=== PATIENT | male | born 1985 | race Caucasian/White ===

== ENCOUNTER 2018-03-21 09:34 | Observation (INO) ==
[2018-03-21] MEDS ORDERED: Ondansetron 4 MG/2 ML VIAL IVP ONE (10:08)
[2018-03-21] MEDS ORDERED: 0.9 % Sodium Chloride 1,000 ML IVC ONE ×2 (10:08→10:21)
[2018-03-21] MEDS ORDERED: Isovue-370 500 ML INFUS..BTL IV ONE (10:20)
[2018-03-21 10:23] LABS: Basophils # 0.1 K/mcL (0.0-0.2); Basophils % 0.4 %; Eosinophils # 0.1 K/mcL (0.0-0.6); Eosinophils % 0.5 %; Hematocrit 46.8 % (37.5-50.1); Hemoglobin 15.9 g/dL (12.9-16.9); Immature Granulocytes % 0.3 % (0-4); Lymphocytes # 1.3 K/mcL (0.6-4.6); Lymphocytes % 10.5 %; Mean Corpuscular Hemoglobin 30.8 pg (28.0-33.3); Mean Corpuscular Volume 90.7 fL (83.0-100.0); Mean Platelet Volume 11.5 fL (9.4-12.4); Monocytes # 0.7 K/mcL (0.0-1.3); Monocytes % 6.2 %; Neutrophils # 9.8 K/mcL (1.6-8.9); Platelet Count 155 K/mcL (140-400); Red Blood Count 5.16 M/mcL (4.19-5.50); Segmented Neutrophils % 82.1 %
--- NOTE | 2018-03-21 10:25 | Emergency Department Note ---
Disposition Clinical Impression: Abdominal pain, acute, left lower quadrant, Diverticulitis Disposition: Still a Patient Referrals: NONE,PCP [Primary Care Provider] - General Adult HPI - General Chief complaint: ED Abdominal Pain Stated complaint: Abdominal pain Time Seen by Provider: 03/21/18 10:02 Source: patient Limitations: no limitations - History of Present Illness Pain Scale: 8 - Related Data Previous Rx's Medication Instructions Recorded Methocarbamol [Robaxin] 500 mg PO Q8HR PRN #30 tablet 01/25/18 Naproxen 500 mg PO BID 10 Days #20 tablet 01/25/18 Allergies Allergy/AdvReac Type Severity Reaction Status Date / Time No Known Allergies Allergy Verified 01/25/18 20:01 Past Medical History - Past Medical History Medical history: Reports: no medical history Surgical history: Reports: no surgical history Psychiatric history: Reports: no psych history - Social History Smoking Status: Current every day smoker Smokeless Tobacco Status: Yes Alcohol use: Reports: none Drug use: Reports: none Physical Exam - General Limitations: no limitations General appearance: alert, in no apparent distress Course Vital Signs Temperature 97.8 F 03/21/18 09:51 Pulse Rate 80 03/21/18 09:51 Respiratory Rate 16 03/21/18 09:51 Blood Pressure 121/78 03/21/18 09:51 O2 Sat by Pulse Oximetry 98 03/21/18 09:51 Temperature 97.8 F 03/21/18 09:51 Pulse Rate 80 03/21/18 09:51 Respiratory Rate 16 03/21/18 09:51 Blood Pressure 121/78 03/21/18 09:51 O2 Sat by Pulse Oximetry 98 03/21/18 09:51 Oxygen Delivery Oxygen Delivery Room Air Attestation Statement - Attestation Attestation: I examined this patient and my medical decision-making was reviewed with the Resident Physician. I agree with the documented findings, disposition and treatment plan as described except to the extent set forth below. 32-year-old male presents emergency of her left lower quadrant abdominal pain. Was seen a few days ago at an outlying facility and diagnosed with diverticulitis. He has been taking Cipro and Flagyl. Having worsening nausea and unable to tolerate the medication well. Increasing pain left lower quadrant. We will repeat a CT scan to make sure he does not have any macro perforation or any small abscess. We will start him on IV antibiotics as well.
[2018-03-21 10:44] LABS: Alanine Aminotransferase 46 Units/L (7-52); Albumin 4.4 g/dL (3.5-5.7); Albumin/Globulin Ratio 1.8 (1.1-2.2); Alkaline Phosphatase 83 Units/L (34-104); Aspartate Amino Transferase 22 Units/L (13-39); BUN/Creatinine Ratio 14 (6-26); Bilirubin,Direct 0.3 mg/dL (0.0-0.2); Bilirubin,Indirect 0.5 mg/dL (0.0-1.2); Bilirubin,Total 0.8 mg/dL (0.3-1.0); Blood Urea Nitrogen 12 mg/dL (6-20); Calcium 9.1 mg/dL (8.6-10.3); Carbon Dioxide 27 mEq/L (23-29); Chloride 104 mEq/L (98-107); Globulin 2.5 g/dL (2.4-3.5); Glucose 102 mg/dL (70-105); Lipase 18 Units/L (11-82); Osmolality,Calculated 282 (280-300); Potassium 3.8 mEq/L (3.5-5.1); Sodium 136 mEq/L (136-145); Total Protein 6.9 g/dL (6.4-8.9); eGFR For Non-African Americans > 60 (> 60)
[2018-03-21 10:48] LABS: Bilirubin,Urine Small (Negative); Blood,Urine Negative (Negative); Clarity,Urine Clear (Clear); Color,Urine Dark Yellow (Yellow); Glucose,Urine (UA) Normal (Normal); Ketones,Urine Trace mg/dL (Negative); Leukocyte Esterase,Urine Small (Negative); Nitrite,Urine Negative (Negative); PH,Urine 5.5 pH Units (5.0-8.0); Protein,Urine Negative (Neg-Trace); Specific Gravity,Urine 1.024 (1.010-1.025); Urobilinogen,Urine Normal (Normal)
[2018-03-21 10:51] LABS: Bacteria,Urine None Seen per hpf (None-Few); Hyaline Casts,Urine None Seen per lpf (None-Few); Squamous Epithelial Cell,Urine Few per lpf (None-Few); WBC,Urine 0-3 per hpf (0-3)
[2018-03-21] MEDS ORDERED: Piperacillin/Tazobactam 3.375 GM in 0.9 % Sodium Chloride Mini Bag 100 ML IVPB ONE (11:02)
--- NOTE | 2018-03-21 11:38 | Emergency Department Note ---
Disposition Clinical Impression: Acute diverticulitis Disposition: Admitted As Inpatient Condition: Fair Referrals: NONE,PCP [Primary Care Provider] - Forms: ED Satisfaction Letter, Work/School Release Time of Disposition: 12:03 Abdominal Pain HPI - General Chief Complaint: ED Abdominal Pain Stated Complaint: Abdominal pain Time Seen by Provider: 03/21/18 10:02 Source: patient Mode of arrival: ambulatory Limitations: no limitations Nursing Notes Reviewed: Yes Vital Signs Reviewed: Yes - History of Present Illness HPI Narrative: Patient is a 32-year-old male who presents to [facility] ED with a chief complaint of left lower quadrant abdominal pain. States his symptoms is worsened over the last 2 days. He was recently diagnosed with acute diverticulitis at [facility] in [place]. States at that time, they did a CT scan and then placed him on a course of oral antibiotics Cipro and Flagyl. States over the last 2 days, he has become more nauseated and his pain has been persistent. It was worse today at work so then he came in to get it rechecked. Has had subjective fevers and chills, no measured temperature. Denies any chest pain, difficulty breathing, problems with urination. Pt Subjective Complaint: abdominal pain Onset (ago): day(s) (3) Consistency: intermittent, Worsening Location: LLQ Pain Severity: moderate Pain Scale: 8 Quality: aching Radiation: none Migration to: no migration Improves with: nothing Worsens with: nothing Associated symptoms: Reports: nausea, fever (subjective), chills. Denies: vomiting, diarrhea, constipation, dysuria Treatments prior to arrival: other - Related Data Previous Rx's Medication Instructions Recorded Methocarbamol [Robaxin] 500 mg PO Q8HR PRN #30 tablet 01/25/18 Naproxen 500 mg PO BID 10 Days #20 tablet 01/25/18 Allergies Allergy/AdvReac Type Severity Reaction Status Date / Time No Known Allergies Allergy Verified 01/25/18 20:01 All systems ED: reviewed and negative except as stated. Abdominal Pain PMH - Past Medical History Medical history: Reports: no medical history Male Surgical History: Reports: orthopedic, other Psychiatric history: Reports: no psych history - Social History Smoking status: Current every day smoker Alcohol use: Reports: none Drug use: Reports: none Physical Exam - General Limitations: no limitations General appearance: alert, in no apparent distress - Head Head exam: atraumatic, normocephalic, normal inspection - Eye Eye exam: Present: EOMI - ENT ENT exam: normal exam, normal oropharynx, mucous membranes moist - Neck Neck exam: Present: normal inspection, full ROM, trachea midline - Chest Chest inspection: Present: normal inspection, symmetric chest wall rise - Respiratory Respiratory exam: Present: normal lung sounds bilaterally - Cardiovascular Cardiovascular exam: Present: regular rate, normal rhythm, normal heart sounds - Abdominal Exam Abdominal exam: Present: soft, tenderness Abdominal tenderness: Present: LLQ - Extremities Exam Extremities exam: Present: normal inspection, full ROM. Absent: tenderness, pedal edema - Neurological Exam Neurological exam: Present: alert, oriented X3 - Psychiatric Psychiatric exam: Present: normal affect, normal mood - Skin Skin exam: Present: warm, dry, intact, normal color Course Course Narrative: Patient seen and examined. Recent diverticulitis with worsening nausea and pain. We will get lab work as well as repeat CT of the abdomen and pelvis with IV contrast. We will give Zofran for nausea. We will go ahead and order a dose of IV Cipro and Flagyl. - Reevaluation(s) Reevaluation #1: Patient's lab work shows mild leukocytosis of 12. Labwork otherwise unremarkable. I received a call from the radiologist who states patient does have diverticulitis in the descending colon as well as a contained perforation. I discussed with the surgeon Dr. Duggan who will admit the patient. I went back to discuss with the patient. He is in agreement with the treatment plan. He would like something for pain at this time. We will give 0.5 mg Dilaudid. Time: 12:02 Vital Signs Temperature 97.8 F 03/21/18 09:51 Pulse Rate 80 03/21/18 09:51 Respiratory Rate 16 03/21/18 09:51 Blood Pressure 121/78 03/21/18 09:51 O2 Sat by Pulse Oximetry 98 03/21/18 09:51 Temperature 97.8 F 03/21/18 09:51 Pulse Rate 75 03/21/18 10:09 Respiratory Rate 14 03/21/18 10:09 Blood Pressure 119/75 03/21/18 10:09 O2 Sat by Pulse Oximetry 99 03/21/18 10:09 Oxygen Delivery Oxygen Delivery Room Air Abdominal Pain - Medical Records Medical records reviewed: Yes I reviewed the patient's medical records. - Lab Data Lab results reviewed: Yes I reviewed the patient's lab results. Result diagrams: 03/21/18 10:07 03/21/18 10:07 Lab Results 03/21/18 03/21/18 03/21/18 Range/Units 10:07 10:07 10:26 WBC 12.0 H (4.3-11.1) K/mcL RBC 5.16 (4.19-5.50) M/mcL Hgb 15.9 (12.9-16.9) g/dL Hct 46.8 (37.5-50.1) % MCV 90.7 (83.0-100.0) fL MCH 30.8 (28.0-33.3) pg MCHC 34.0 (31.6-35.5) g/dL RDW 12.0 (11.5-14.5) % Plt Count 155 (140-400) K/mcL MPV 11.5 (9.4-12.4) fL Immature Gran % 0.3 (0-4) % Seg Neutrophils % 82.1 % Lymphocytes % 10.5 % Monocytes % 6.2 % Eosinophils % 0.5 % Basophils % 0.4 % Neutrophils # 9.8 H (1.6-8.9) K/mcL Lymphocytes # 1.3 (0.6-4.6) K/mcL Monocytes # 0.7 (0.0-1.3) K/mcL Eosinophils # 0.1 (0.0-0.6) K/mcL Basophils # 0.1 (0.0-0.2) K/mcL Sodium 136 (136-145) mEq/L Potassium 3.8 (3.5-5.1) mEq/L Chloride 104 (98-107) mEq/L Carbon Dioxide 27 (23-29) mEq/L BUN 12 (6-20) mg/dL Creatinine 0.86 (0.70-1.30) mg/dL Est GFR ( Amer) > 60 (> 60) Est GFR (Non-Af Amer) > 60 (> 60) BUN/Creatinine Ratio 14 (6-26) Glucose 102 (70-105) mg/dL Calculated Osmolality 282 (280-300) Lactic Acid (0.5-2.2) mmol/L Calcium 9.1 (8.6-10.3) mg/dL Total Bilirubin 0.8 (0.3-1.0) mg/dL Direct Bilirubin 0.3 H (0.0-0.2) mg/dL Indirect Bilirubin 0.5 (0.0-1.2) mg/dL AST 22 (13-39) Units/L ALT 46 (7-52) Units/L Alkaline Phosphatase 83 (34-104) Units/L Serum Total Protein 6.9 (6.4-8.9) g/dL Albumin 4.4 (3.5-5.7) g/dL Globulin 2.5 (2.4-3.5) g/dL Albumin/Globulin Ratio 1.8 (1.1-2.2) Lipase 18 (11-82) Units/L Urine Color Dark Yellow (Yellow) Urine Clarity Clear (Clear) Urine pH 5.5 (5.0-8.0) pH Units Ur Specific [place] 1.024 (1.010-1.025) Urine Protein Negative (Neg-Trace) mg/dL Urine Glucose (UA) Normal (Normal) mg/dL Urine Ketones Trace H (Negative) mg/dL Urine Blood Negative (Negative) Urine Nitrite Negative (Negative) Urine Bilirubin Small H (Negative) Urine Urobilinogen Normal (Normal) mg/dL Ur Leukocyte Esterase Small H (Negative) Urine Microscopic RBC 5-15 H (0-3) per hpf Urine Microscopic WBC 0-3 (0-3) per hpf Ur Squamous Epith Cells Few (None-Few) per lpf Urine Bacteria None Seen (None-Few) per hpf Hyaline Casts None Seen (None-Few) per lpf Ur Culture Indicated? YES A (NO) 03/21/18 Range/Units 10:26 WBC (4.3-11.1) K/mcL RBC (4.19-5.50) M/mcL Hgb (12.9-16.9) g/dL Hct (37.5-50.1) % MCV (83.0-100.0) fL MCH (28.0-33.3) pg MCHC (31.6-35.5) g/dL RDW (11.5-14.5) % Plt Count (140-400) K/mcL MPV (9.4-12.4) fL Immature Gran % (0-4) % Seg Neutrophils % % Lymphocytes % % Monocytes % % Eosinophils % % Basophils % % Neutrophils # (1.6-8.9) K/mcL Lymphocytes # (0.6-4.6) K/mcL Monocytes # (0.0-1.3) K/mcL Eosinophils # (0.0-0.6) K/mcL Basophils # (0.0-0.2) K/mcL Sodium (136-145) mEq/L Potassium (3.5-5.1) mEq/L Chloride (98-107) mEq/L Carbon Dioxide (23-29) mEq/L BUN (6-20) mg/dL Creatinine (0.70-1.30) mg/dL Est GFR ( Amer) (> 60) Est GFR (Non-Af Amer) (> 60) BUN/Creatinine Ratio (6-26) Glucose (70-105) mg/dL Calculated Osmolality (280-300) Lactic Acid 0.9 (0.5-2.2) mmol/L Calcium (8.6-10.3) mg/dL Total Bilirubin (0.3-1.0) mg/dL Direct Bilirubin (0.0-0.2) mg/dL Indirect Bilirubin (0.0-1.2) mg/dL AST (13-39) Units/L ALT (7-52) Units/L Alkaline Phosphatase (34-104) Units/L Serum Total Protein (6.4-8.9) g/dL Albumin (3.5-5.7) g/dL Globulin (2.4-3.5) g/dL Albumin/Globulin Ratio (1.1-2.2) Lipase (11-82) Units/L Urine Color (Yellow) Urine Clarity (Clear) Urine pH (5.0-8.0) pH Units Ur Specific [place] (1.010-1.025) Urine Protein (Neg-Trace) mg/dL Urine Glucose (UA) (Normal) mg/dL Urine Ketones (Negative) mg/dL Urine Blood (Negative) Urine Nitrite (Negative) Urine Bilirubin (Negative) Urine Urobilinogen (Normal) mg/dL Ur Leukocyte Esterase (Negative) Urine Microscopic RBC (0-3) per hpf Urine Microscopic WBC (0-3) per hpf Ur Squamous Epith Cells (None-Few) per lpf Urine Bacteria (None-Few) per hpf Hyaline Casts (None-Few) per lpf Ur Culture Indicated? (NO) - Radiology Data Radiology results reviewed: Yes I reviewed the patient's radiology results. Abdomen/Pelvis CT 03/21/18 10:20 IMPRESSION: Acute diverticulitis of the descending colon, with suspected small focus of extraluminal air which may represent a contained perforation. No free air or well-defined abscess. Findings were called to Dr. Carlisle at 11:48 a.m., 03/21/2018 D/ / Flo Sullivan MD / Flo Sullivan MD Interpreting Provider: Flo Sullivan MD
[2018-03-21] MEDS ORDERED: MetroNIDAZOLE 500 MG/100 ML 500 MG/100 ML BAG IVPB ONE (11:44)
[2018-03-21] MEDS ORDERED: Ondansetron 4 MG/2 ML VIAL IVP PRN (11:57)
[2018-03-21] MEDS ORDERED: *HR* HYDROmorphone (PF) 1 MG/ML SYRINGE IVP ONE (11:57)
[2018-03-21] MEDS ORDERED: OXYCODONE Oral CONC 10 MG/0.5 ML ORAL.SYG SL PRN ×2 (11:57→21:18)
[2018-03-21] MEDS ORDERED: *HR* Promethazine 25 MG/ML VIAL IVP PRN (11:57)
--- NOTE | 2018-03-21 12:04 | General Surg History&Physical ---
<Keyla Sam - Last Filed: 03/21/18 14:00> Date of Encounter: 03/21/18 Time of Encounter: 12:04 Assessment and Plan (1) Acute diverticulitis Current Visit: Yes Status: Acute The assessment and plan as outlined above was discussed with the patient and/or family members who expressed understanding and agreement. All questions were answered. Per CT acute diverticulitis of the descending colon with acute microperforation. He is admitted for supportive care and discomfort management. He has failed outpatient antibiotic therapy. Plan: NPO IV fluids IV Zosyn repeat a.m. labs serial abdominal exams incentive spirometry nicotine patch PRN duonebs ambulate and halls TID out of bed to chair TID supportive care and discomfort management G.I. and DVT prophylaxis (2) Smoking history Current Visit: Yes Status: Acute The assessment and plan as outlined above was discussed with the patient and/or family members who expressed understanding and agreement. All questions were answered. see above (3) Currently works full-time Current Visit: Yes Status: Acute The assessment and plan as outlined above was discussed with the patient and/or family members who expressed understanding and agreement. All questions were answered. due his employer requirements, patient will need a work excuse to cover 5 days. he will not be permitted to return to work until atleast Monday03/28/2018. Informed patient that he will need to remain in hospital until at least Monday and therefore we could accommodate his need. History of Present Illness Chief complaint: left lower quadrant pain HPI: Mr. Bourne is a 32 year old male who reports a past medical history of smoking one half to half pack per day for greater than 10 years otherwise no other past medical history. He reports an isolated orthopedic surgery on his right hand. He states on Monday03/19/2018 he began having left lower quadrant dull achy pain. The pain as since progressed to severe, constant, sharp, 8 out of 10, and with alleviating factors of pain medication. He denies fever but endorses chills. He denies chest pain, shortness of breath, urinary symptoms, constipation, diarrhea, black, bloody, or tarry stool. He has never had a colonoscopy. He denies a family history of colon cancer. This is his 1st episode. He reports he went to the urgent care on Monday, was diagnosed with diverticulitis, and was started on Cipro and Flagyl. As noted above, his symptoms progressed while on Cipro Flagyl. CT of the abdomen and pelvis with IV and no oral contrast noted acute diverticulitis of the descending colon with a suspected small focus of extra luminal air which might represent a microperforation. He is admitted to the surgical service for management of diverticulitis. Past Med Surg Social Fam HX - Past Medical History Source: patient Medical history: no medical history Psychiatric history: no psych history - Past Surgical History Surgical History: no surgical history - Social History Smoking Status: Current every day smoker Packs per day: 1/2 pack per day for greater than 10 years Smokeless Tobacco Status: Yes Alcohol use: none Drug use: none Occupational status: employed Current living situation: Home - Independent Activity Level: Independent ambulation Recent Out of Country Travel Within the Last 8 Weeks: No Exposure or Possible Exposure to Illness During Travel: No Medications and Allergies No Known Home Drugs 03/21/18 [History] 3 Allergy/AdvReac Type Severity Reaction Status Date / Time No Known Allergies Allergy Verified 01/25/18 20:01 Review of Systems All systems PM: reviewed and no additional remarkable complaints except as stated All systems PM: The remainder of the systems were reviewed and are negative General Surgery Exam Initial Vital Signs Temp Pulse Resp BP Pulse Ox 97.8 F 80 16 121/78 98 03/21/18 09:51 03/21/18 09:51 03/21/18 09:51 03/21/18 09:51 03/21/18 09:51 VITAL SIGNS: Reviewed. See [facility] GENERAL: In no apparent distress. HEENT: Normocephalic, atraumatic, pupils are equal and reactive, extraocular motions intact, oropharynx is pink and moist, there is no neck adenopathy or JVD noted. CHEST/RESPIRATORY: The thorax is free from signs of trauma. Lung sounds: clear to auscultation, normal respiratory effort CARDIAC: Regular rate and rhythm. Normal S1 and S2, without murmurs, gallops, or rubs. VASCULAR: No Edema. 2+ peripheral pulses. ABDOMEN: soft but with involuntary guarding, hyper active bowel sounds, left lower quadrant tenderness MUSCULOSKELETAL: Good range of motion of all major joints. Extremities without clubbing, cyanosis or edema. NEUROLOGIC EXAM: Alert and oriented x 3. Speech normal. Follows commands. PSYCHIATRIC: Mood normal. SKIN: No rash or lesions. Results - Labs 03/21/18 10:07 03/21/18 10:07 Abnormal lab results WBC 12.0 K/mcL (4.3-11.1) H 03/21/18 10:07 Neutrophils # 9.8 K/mcL (1.6-8.9) H 03/21/18 10:07 Direct Bilirubin 0.3 mg/dL (0.0-0.2) H 03/21/18 10:07 Urine Ketones Trace mg/dL (Negative) H 03/21/18 10:26 Urine Bilirubin Small (Negative) H 03/21/18 10:26 Ur Leukocyte Esterase Small (Negative) H 03/21/18 10:26 Urine Microscopic RBC 5-15 per hpf (0-3) H 03/21/18 10:26 Ur Culture Indicated? YES (NO) A 03/21/18 10:26 All other labs normal. - Imaging CT scan - abdomen: report reviewed CT scan - pelvis: report reviewed <Alireza Duggan - Last Filed: 03/21/18 15:41> Date of Encounter: 03/21/18 Assessment and Plan (1) Acute diverticulitis Current Visit: Yes Status: Acute The assessment and plan as outlined above was discussed with the patient and/or family members who expressed understanding and agreement. All questions were answered. (2) Smoking history Current Visit: Yes Status: Acute The assessment and plan as outlined above was discussed with the patient and/or family members who expressed understanding and agreement. All questions were answered. (3) Currently works full-time Current Visit: Yes Status: Acute The assessment and plan as outlined above was discussed with the patient and/or family members who expressed understanding and agreement. All questions were answered. History of Present Illness HPI: Mr. Bourne is a 32 year old male Review of Systems All systems PM: The remainder of the systems were reviewed and are negative General Surgery Exam Initial Vital Signs Temp Pulse Resp BP Pulse Ox 97.8 F 80 16 121/78 98 03/21/18 09:51 03/21/18 09:51 03/21/18 09:51 03/21/18 09:51 03/21/18 09:51 Results - Labs 03/21/18 10:07 03/21/18 10:07 Abnormal lab results WBC 12.0 K/mcL (4.3-11.1) H 03/21/18 10:07 Neutrophils # 9.8 K/mcL (1.6-8.9) H 03/21/18 10:07 Direct Bilirubin 0.3 mg/dL (0.0-0.2) H 03/21/18 10:07 Urine Ketones Trace mg/dL (Negative) H 03/21/18 10:26 Urine Bilirubin Small (Negative) H 03/21/18 10:26 Ur Leukocyte Esterase Small (Negative) H 03/21/18 10:26 Urine Microscopic RBC 5-15 per hpf (0-3) H 03/21/18 10:26 Ur Culture Indicated? YES (NO) A 03/21/18 10:26 All other labs normal. - Attending Attestation I examined this patient and my medical decision-making was reviewed with the Resident Physician. I agree with the documented findings, disposition and treatment plan as described except to the extent set forth below. The patient is seen and evaluated. CT reviewed. Agree with IV Antibiotic therapy Alireza Duggan MD FACS
[2018-03-21] MEDS: Piperacillin/Tazobactam 3.375 GM in 0.9 % Sodium Chloride Mini Bag 100 ML IVPB SCH ×2 (13:20→21:21)
[2018-03-21] MEDS: Pantoprazole 40 MG VIAL IVP SCH (13:20)
[2018-03-21] MEDS: 0.9 % Sodium Chloride 1,000 ML IVC SCH ×2 (13:21→22:26)
[2018-03-21] MEDS: OXYCODONE Oral CONC 10 MG/0.5 ML ORAL.SYG SL PRN ×2 (14:16→19:15)
[2018-03-21] MEDS: Nicotine 7 MG PATCH.TD24 TD SCH (14:22)
[2018-03-21] MEDS: Ketorolac 15 MG/ML VIAL IVP SCH ×2 (17:25→23:43)
[2018-03-21] MEDS ORDERED: Acetaminophen IV 1,000 MG/100 ML INFUS..BTL IVPB SCH (18:00)
[2018-03-21] MEDS ORDERED: Piperacillin/Tazobactam 3.375 GM in Water for inj. (sterile) 20 ML 20 ML IVP SCH (20:00)
[2018-03-21] MEDS ORDERED: *HR* OxyCODONE/APAP 10/325 TABLET PO PRN (21:09)
[2018-03-22 05:47] LABS: Basophils % 0.5 %; Eosinophils # 0.1 K/mcL (0.0-0.6); Eosinophils % 1.8 %; Hematocrit 39.3 % (37.5-50.1); Immature Granulocytes % 0.3 % (0-4); Lymphocytes # 1.7 K/mcL (0.6-4.6); Lymphocytes % 26.3 %; Mean Corpuscular HGB Conc 33.3 g/dL (31.6-35.5); Mean Corpuscular Hemoglobin 30.3 pg (28.0-33.3); Mean Corpuscular Volume 90.8 fL (83.0-100.0); Mean Platelet Volume 11.6 fL (9.4-12.4); Monocytes # 0.5 K/mcL (0.0-1.3); Monocytes % 7.9 %; Neutrophils # 4.1 K/mcL (1.6-8.9); Platelet Count 110 K/mcL (140-400); Red Blood Count 4.33 M/mcL (4.19-5.50); Red Cell Distribution Width 11.9 % (11.5-14.5); Segmented Neutrophils % 63.2 %
[2018-03-22 05:49] LABS: BUN/Creatinine Ratio 14 (6-26); Blood Urea Nitrogen 12 mg/dL (6-20); Calcium 8.3 mg/dL (8.6-10.3); Carbon Dioxide 25 mEq/L (23-29); Chloride 108 mEq/L (98-107); Glucose 85 mg/dL (70-105); Hemoglobin 13.1 g/dL (12.9-16.9); Osmolality,Calculated 285 (280-300); Potassium 3.9 mEq/L (3.5-5.1); Sodium 138 mEq/L (136-145); eGFR For Non-African Americans > 60 (> 60)
[2018-03-22] MEDS: Piperacillin/Tazobactam 3.375 GM in 0.9 % Sodium Chloride Mini Bag 100 ML IVPB SCH ×3 (06:00→21:45)
[2018-03-22] MEDS: 0.9 % Sodium Chloride 1,000 ML IVC SCH ×2 (06:32→15:55)
[2018-03-22] MEDS: Ketorolac 15 MG/ML VIAL IVP SCH ×3 (06:38→18:12)
--- NOTE | 2018-03-22 08:19 | General Surgery Progress Note ---
<Keyla Sam - Last Filed: 03/22/18 08:14> Date of Encounter: 03/22/18 Time of Encounter: 07:00 - Assessment and Plan (1) Acute diverticulitis Current Visit: Yes Status: Acute with microperforation. Involuntary guarding resolved. WBC has normalized. He is afebrile May start CLD. If abdominal pain returns, return to NPO Continue IV ATBX another 24-48 hours continue supportive care and discomfort management continue G.I. and DVT prophylaxis ambulate as tolerated out of bed to chair for all trays continue incentive spirometry serial abdominal exams repeat a.m. labs (2) Smoking history Current Visit: Yes Status: Acute Continue nicotine patch and aggressive pulmonary toileting. Smoking cessation is strongly encouraged. (3) Currently works full-time Current Visit: Yes Status: Acute Per previous recommendations, patient will not be recommended to return to work until on or after 03/28 Subjective Patient reports: no new complaints, feels better, still having pain, pain is less, voiding w/o difficulty, flatus, no bowel movement, afebrile Objective Vital Signs - Last 8 Hours Temp Pulse Resp BP Pulse Ox 03/22/18 05:32 97.7 F 46 15 103/65 97 Intake and Output 03/21/18 03/22/18 03/22/18 23:59 07:59 15:59 Intake Total 1680 / 1680 1100 / 1100 0 / 0 Output Total 600 / 600 250 / 250 0 / 0 Balance 1080 / 1080 850 / 850 0 / 0 Intake: IV Fluids 1200 / 1200 1100 / 1100 0.9 % Sodium Chloride 1,000 ML 1000 / 1000 1000 / 1000 @ 125 mls/hr IVC .Q8H PAPA Rx#: [id number] Ofirmev 1,000 mg/100 ml 1,000 100 / 100 mg In 100 ml @ 400 mls/hr IVPB Q6HR PAPA Rx#:[id number] Zosyn 3.375 GM In 0.9 % Sodium 100 / 100 100 / 100 Chloride (Mini-Bag +) 100 ML @ 25 mls/hr IVPB Q8H PAPA Rx#: [id number] Oral 480 / 480 0 / 0 0 / 0 Output: Urine 600 / 600 250 / 250 0 / 0 Other: Meal Dinner Percent of Meal Consumed 95% # Bowel Movements 0 Weight 88.4 kg Blood Glucose* 75 79 Patient Weight 03/22/18 23:59 Weight 88.4 kg - General physical appearance no distress (sleeping upon my entry) - ENT normal mucosa - Neck Neck exam: trachea midline - Respiratory normal expansion, normal respiratory effort - Cardiovascular Cardiovascular exam: Present: RRR - Abdomen Abdomen: Present: bowel sounds present, soft, tender. Absent: guarding ( involuntary guarding resolved) Hernia: none - Integumentary no growths, no abnormal pigmentation - Neurologic normal coordination, normal sensation - Musculoskeletal normal gait, normal posture - Psychiatric oriented to time, oriented to person, oriented to place, speech is normal, memory intact - Labs 03/22/18 05:14 03/22/18 05:14 Diabetes panel 03/22/18 Range/Units 05:14 Sodium 138 (136-145) mEq/L Potassium 3.9 (3.5-5.1) mEq/L Chloride 108 H (98-107) mEq/L Carbon Dioxide 25 (23-29) mEq/L BUN 12 (6-20) mg/dL Creatinine 0.86 (0.70-1.30) mg/dL Glucose 85 (70-105) mg/dL Calcium 8.3 L (8.6-10.3) mg/dL Calcium panel 03/22/18 Range/Units 05:14 Calcium 8.3 L (8.6-10.3) mg/dL Pituitary panel 03/22/18 Range/Units 05:14 Sodium 138 (136-145) mEq/L Potassium 3.9 (3.5-5.1) mEq/L Chloride 108 H (98-107) mEq/L Carbon Dioxide 25 (23-29) mEq/L BUN 12 (6-20) mg/dL Creatinine 0.86 (0.70-1.30) mg/dL Glucose 85 (70-105) mg/dL Calcium 8.3 L (8.6-10.3) mg/dL Adrenal panel 03/22/18 Range/Units 05:14 Sodium 138 (136-145) mEq/L Potassium 3.9 (3.5-5.1) mEq/L Chloride 108 H (98-107) mEq/L Carbon Dioxide 25 (23-29) mEq/L BUN 12 (6-20) mg/dL Creatinine 0.86 (0.70-1.30) mg/dL Glucose 85 (70-105) mg/dL Calcium 8.3 L (8.6-10.3) mg/dL Consult Discharge Plan - Plan Referrals: NONE,PCP [Primary Care Provider] - <Alireza Duggan - Last Filed: 03/23/18 08:25> Date of Encounter: 03/22/18 - Assessment and Plan (1) Acute diverticulitis Current Visit: Yes Status: Acute (2) Smoking history Current Visit: Yes Status: Acute (3) Currently works full-time Current Visit: Yes Status: Acute Objective Vital Signs - Last 8 Hours Temp Pulse Resp BP Pulse Ox 03/23/18 07:53 97.6 F 52 14 118/80 100 03/23/18 03:41 97.6 F 64 15 128/89 97 Intake and Output 03/22/18 03/23/18 03/23/18 23:59 07:59 15:59 Intake Total 2580 / 2580 300 / 300 Output Total 1700 / 1700 750 / 750 Balance 880 / 880 -450 / -450 Intake: IV Fluids 1100 / 1100 100 / 100 0.9 % Sodium Chloride 1,000 ML 1000 / 1000 @ 125 mls/hr IVC .Q8H PAPA Rx#: [id number] Zosyn 3.375 GM In 0.9 % Sodium 100 / 100 100 / 100 Chloride (Mini-Bag +) 100 ML @ 25 mls/hr IVPB Q8H PAPA Rx#: [id number] Oral 1480 / 1480 200 / 200 Output: Urine 1700 / 1700 750 / 750 Other: Meal Lunch Percent of Meal Consumed 90% # Bowel Movements 0 0 - Labs 03/23/18 04:18 03/22/18 05:14 - Attending Attestation I have personally performed a face to face evaluation on this patient. I have reviewed and agree with the care plan. History and Exam by me shows: The patient is seen and evaluated on morning rounds. His pain continues to improve. We will continue IV antibiotics today Alireza Duggan MD FACS
[2018-03-22] MEDS: Nicotine 7 MG PATCH.TD24 TD SCH (08:37)
[2018-03-22] MEDS: Pantoprazole 40 MG VIAL IVP SCH (08:37)
[2018-03-23] MEDS: Ketorolac 15 MG/ML VIAL IVP SCH ×2 (00:26→05:47)
[2018-03-23 04:36] LABS: Basophils % 0.4 %; Eosinophils # 0.1 K/mcL (0.0-0.6); Eosinophils % 2.3 %; Hematocrit 39.2 % (37.5-50.1); Hemoglobin 13.4 g/dL (12.9-16.9); Immature Granulocytes % 0.4 % (0-4); Lymphocytes # 1.7 K/mcL (0.6-4.6); Lymphocytes % 32.3 %; Mean Corpuscular HGB Conc 34.2 g/dL (31.6-35.5); Mean Corpuscular Hemoglobin 30.1 pg (28.0-33.3); Mean Corpuscular Volume 88.1 fL (83.0-100.0); Mean Platelet Volume 11.4 fL (9.4-12.4); Monocytes # 0.3 K/mcL (0.0-1.3); Neutrophils # 3.1 K/mcL (1.6-8.9); Platelet Count 144 K/mcL (140-400); Red Blood Count 4.45 M/mcL (4.19-5.50); Red Cell Distribution Width 11.9 % (11.5-14.5); Segmented Neutrophils % 58.6 %
[2018-03-23] MEDS: Piperacillin/Tazobactam 3.375 GM in 0.9 % Sodium Chloride Mini Bag 100 ML IVPB SCH (05:45)
[2018-03-23 07:54] VITALS: BP 118/80
[2018-03-23] MEDS ORDERED: 0.9 % Sodium Chloride 1,000 ML IVC SCH (08:00)
[2018-03-23] MEDS: Nicotine 7 MG PATCH.TD24 TD SCH (09:30)
[2018-03-23] MEDS: Pantoprazole 40 MG VIAL IVP SCH (09:30)
--- NOTE | 2018-03-23 09:34 | Discharge Summary ---
<Malachi Pavon - Last Filed: 03/23/18 09:56> Date of Encounter: 03/23/18 Time of Encounter: 09:50 - Discharge Diagnosis (1) Acute diverticulitis Priority: Primary Status: Acute General Surgery Exam Initial Vital Signs Temp Pulse Resp BP Pulse Ox 97.8 F 80 16 121/78 98 03/21/18 09:51 03/21/18 09:51 03/21/18 09:51 03/21/18 09:51 03/21/18 09:51 - General physical appearance well developed, well nourished, no distress - Eyes PERRL, normal ocular movement - ENT normal mucosa, atraumatic, normocephalic - Neck trachea midline, no venous distension - Respiratory normal expansion, normal respiratory effort, clear to auscultation - Cardiovascular Cardiovascular exam: Present: RRR - Abdomen Abdomen general surgery: Present: bowel sounds present, soft, tender (mildy tender to deep palpation of the LLQ, significantly improved) - Integumentary Integumentary general surgery: Present: warm and dry - Neurologic Present: CN 2-12 grossly intact - Musculoskeletal Present: normal gait, normal posture - Psychiatric Psychiatric general surgery: Present: A&Ox3, speech is normal, memory intact - Hospital Course Hospital course: Mr. Bourne is a 32 year old male presented to ED for evaluation of worsening LLQ pain. Patient was started on cipro/flagyl as outpatient for diverticulitis on Monday. Completed 2 days of therapy and present to ED on Monday. He was found to have slight leukocytosis at [address] abdomen and pelvis confirmed acute diverticulitis with microperforation. He was started on IV antibiotics - Zosyn, and bowel rest as NPO. His hospital course has been uncomplicated. He has responded to treatment well. His pain has significantly improved, with only mild tenderness to deep palpation. Tolerating regular diet without nausea, vomiting, or worsening pain. Leukocytosis has resolved. Vital signs are within normal limits and stable, afebrile. Ambulating well without difficulty. Patient is progressing back to baseline and will be planned for discharge this afternoon with 7 days of ciprofloxacin and metronidazole treatment. Have discussed risks of alcohol consumption while on metronidazole. Outpatient follow up with Dr. Duggan on at 10:10 am. - Time Spent with Patient Total time spent providing and/or coordinating discharge services: - Discharge Medications Prescriptions: Ciprofloxacin [Cipro] 500 mg PO BID #14 tablet Docusate [Colace] 100 mg PO BID #30 capsule metroNIDAZOLE [Flagyl] 500 mg PO TID #21 tablet Home Medications: Ciprofloxacin [Cipro] 500 mg PO BID #14 tablet 03/23/18 [Rx] Docusate [Colace] 100 mg PO BID #30 capsule 03/23/18 [Rx] metroNIDAZOLE [Flagyl] 500 mg PO TID #21 tablet 03/23/18 [Rx] Allergies/Adverse Reactions: 3 Allergy/AdvReac Type Severity Reaction Status Date / Time No Known Allergies Allergy Verified 01/25/18 20:01 Date of admission: 03/21/18 12:00 Primary care physician: PCP NONE Consults: 03/21/18 14:11 consult to director of primary [Consult to Nutrition] [CONS] Routine Comment: low fiber for 6 weeks , then diverticulitis diet Consulting Provider: NUTRITION Reason for Dietary Consult: Diet Education Discharging clinician: Malachi Pavon Anticipated date of discharge: 03/23/18 Labs on day of discharge: Labs from last 24 hours 03/23/18 03/22/18 03/21/18 04:18 05:27 23:49 WBC 5.3 RBC 4.45 Hgb 13.4 Hct 39.2 MCV 88.1 MCH 30.1 MCHC 34.2 RDW 11.9 Plt Count 144 MPV 11.4 Immature Gran % 0.4 Seg Neutrophils % 58.6 Lymphocytes % 32.3 Monocytes % 6.0 Eosinophils % 2.3 Basophils % 0.4 Neutrophils # 3.1 Lymphocytes # 1.7 Monocytes # 0.3 Eosinophils # 0.1 Basophils # 0.0 POC Glucose 79 75 - Patient Status Disposition: Home, Self-Care Condition: Good Functional capacity at discharge: independent ambulation Overall status at discharge: patient is progressing back to baseline - Discharge Instructions Instructions: Diverticulitis (DC), Diverticulitis Diet (DC) Follow Up With: NONE,PCP [Primary Care Provider] - Alireza Duggan MD [Partnered Physician] - 04/10/18 10:10 am Forms: Inpatient Work/School Release Additional Instructions: General Surgical Discharge Instructions 1. May progress back to normal activity as tolerated. 2. Take ibuprofen every 8 hours for discomfort. 3. Take stool softeners (Colace) or a water based laxative (Miralax) as needed. You may hold for loose stools. 4. Report any fevers greater than 100.5F, increase abdominal discomfort or any vomiting. 5. Report any pain in the calves, shortness of breath, or rapid heartbeat. 6. Follow-up in the office as directed. 7. If you were prescribed antibiotics, do not stop them without talking to your provider. Do not consume alcohol while taking Metronidazole. - Diet and Activity Activity: resume usual activities as tolerated Diet: advance to your usual diet <Alireza Duggan - Last Filed: 03/26/18 08:37> Date of Encounter: 03/23/18 - Discharge Diagnosis (1) Acute diverticulitis Status: Acute (2) Smoking history Status: Acute (3) Currently works full-time Status: Acute General Surgery Exam Initial Vital Signs Temp Pulse Resp BP Pulse Ox 97.8 F 80 16 121/78 98 03/21/18 09:51 03/21/18 09:51 03/21/18 09:51 03/21/18 09:51 03/21/18 09:51 - Hospital Course Hospital course: Mr. Bourne is a 33 year old male - Time Spent with Patient Total time spent providing and/or coordinating discharge services: Date of admission: 03/21/18 12:00 Primary care physician: PCP NONE Consults: 03/21/18 14:11 consult to director of primary [Consult to Nutrition] [CONS] Routine Comment: low fiber for 6 weeks , then diverticulitis diet Consulting Provider: NUTRITION Reason for Dietary Consult: Diet Education - Attending Attestation I examined this patient and my medical decision-making was reviewed with the Resident Physician. I agree with the documented findings, disposition and treatment plan as described except to the extent set forth below. The patient is seen and evaluated on morning rounds with the resident. Ready for discharge. Follow-up 2 weeks of Alireza Duggan MD FACS
[2018-03-23] MEDS: 0.9 % Sodium Chloride 1,000 ML IVC SCH ×2 (10:16)
== END 2018-03-23 11:56 | disposition home or self-care (01) ==
LOC: EMEROOARM 09:34 → INTOOBSV 12:00 → 3ANU 12:00
PROVIDERS: ADMIT Surgery; ATTEND Surgery